=== PATIENT | male | born 1970 | race Caucasian/White ===

== ENCOUNTER 2017-12-24 05:16 | Day surgery (SDC) | payer OTHER ==
[2017-12-22 11:46] VITALS: BMI 27.8
--- NOTE | 2017-12-24 12:23 | HP ---
History & Physical Update - History History: No Change - Physical Physical: No Change - Assessment Assessment: No Change - Plan Plan: No Change
--- NOTE | 2017-12-24 12:24 | OP ---
Operative Note - Note: Operative Date: 12/24/17 Pre-Operative Diagnosis: BPH w LUTs Operation: urolift x 4 Findings: BPH Post-Operative Diagnosis: Same as Pre-op Surgeon: Kel Naqvi Anesthesiologist/CRIME INVESTIGATOR SPECIAL AGENT: Allyson Dewitt Anesthesia: General Estimated Blood Loss (mls): 0 Drains & Tubes with Location: 18 fr [address]opez Operative Report Dictated: Yes
[2017-12-24] MEDS ORDERED: MIDAZOLAM HCL 2 MG/2 ML SINGLE DOSE VIAL ONE (12:33)
[2017-12-24] MEDS ORDERED: PROPOFOL 20 ML ONE ×2 (12:33)
[2017-12-24] MEDS ORDERED: ONDANSETRON 4 MG/2 ML VIAL IVPUSH PRN (12:42)
[2017-12-24] MEDS ORDERED: oxyCODONE HCL 5 MG TABLET PO PRN (12:42)
[2017-12-24] MEDS ORDERED: ceFAZolin SODIUM 1 GM VIAL IVPB ONE (13:03)
[2017-12-24] MEDS ORDERED: DEXAMETHASONE SOD PHOSPHATE 4 MG/1 ML VIAL ONE (13:06)
[2017-12-24] MEDS ORDERED: ceFAZolin SODIUM 1 GM VIAL ONE (13:06)
[2017-12-24] MEDS ORDERED: IBUPROFEN 800 MG/8 ML IJ IVPB ONE (13:45)
[2017-12-24] MEDS: IBUPROFEN 800 MG/8 ML IJ IVPB PRN ×2 (13:45→13:55)
[2017-12-24] MEDS ORDERED: oxyCODONE HCL 5 MG TABLET PO ONE (15:15)
[2017-12-24] MEDS ORDERED: ACETAMINOPHEN 325 MG TABLET (FP) PO ONE (15:15)
[2017-12-24] MEDS: LACTATED RINGERS SOLUTION 1,000 ML IV SCH ×2 (16:00→18:00)
[2017-12-24] MEDS ORDERED: ACETAMINOPHEN 325 MG TABLET (FP) PO PRN (16:29)
[2017-12-24] MEDS: oxyCODONE HCL 5 MG TABLET PO PRN (17:50)
[2017-12-24] MEDS: ACETAMINOPHEN 325 MG TABLET (FP) PO PRN (17:51)
[2017-12-24] MEDS ORDERED: morphine SULFATE 4 MG/ML VIAL ONE (18:51)
[2017-12-24] MEDS ORDERED: morphine SULFATE 4 MG/ML VIAL IVPUSH ONE (19:00)
[2017-12-24] MEDS ORDERED: morphine SULFATE 4 MG/ML VIAL IVPUSH PRN (19:34)
[2017-12-24] MEDS ORDERED: LORazepam 1 MG TABLET PO ONE (19:45)
[2017-12-25] MEDS: LACTATED RINGERS SOLUTION 1,000 ML IV SCH (01:48)
[2017-12-25] MEDS: oxyCODONE HCL 5 MG TABLET PO PRN ×2 (07:13→13:09)
[2017-12-25] MEDS: ACETAMINOPHEN 325 MG TABLET (FP) PO PRN ×2 (07:14→13:10)
--- NOTE | 2017-12-25 09:46 | PN ---
Progress Note (short form) - Note Progress Note: POD #1 - s/p cysto/urolift under GA. VSS. Pt. doing well, resting comfortably in bed. No complaints. No apparent anesthetic complications noted. Continue current care.
[2017-12-25 10:05] VITALS: BP 97/58; PULSE 65; TEMP 97.6
--- NOTE | 2018-01-25 09:06 | OP ---
DATE OF OPERATION: 12/24/2017 PREOPERATIVE DIAGNOSIS: Benign prostatic hypertrophy with lower urinary tract symptoms. POSTOPERATIVE DIAGNOSIS: Benign prostatic hypertrophy with lower urinary tract symptoms. PROCEDURE: UroLift. SURGEON: Kel Rodgers MD SUPERVISOR FILTER ASSEMBLY: None. ANESTHESIA: General. ANESTHESIOLOGIST: Allyson Dewitt MD SPECIMENS: None. CULTURES: None. DRAINS: An 18-Swazi Sarmiento catheter. ESTIMATED BLOOD LOSS: Negligible. COMPLICATIONS: None. DESCRIPTION OF PROCEDURE: Patient was brought into the operating room, placed on the operating table in supine position. After the administration of general anesthesia, intravenous antibiotics were administered, and sequential compression devices were placed. The patient was placed in the dorsal lithotomy position. The perineum and genitals were prepped and draped in usual sterile manner. Now, the UroLift cystoscope was inserted into the bladder under direct vision. Anterior urethra was normal. Prostatic urethra measured approximately 4.5 cm in length and demonstrated moderate bilobar occlusion. The bladder was entered and thoroughly inspected. There were no foreign bodies, tumors, stones, or inflammation. Both ureteral orifices were in their usual location with clear efflux bilaterally. The UroLift implant was now inserted, and the first one was placed to the level of the verumontanum on the left side at 2 o'clock position. In similar manner, one was placed on the right side at 10 o'clock position at the level of the verumontanum. Now, two more were placed distal to the bladder neck first on the left side at the 2 o'clock position and now on the right side at the 10 o'clock position. There was excellent opening of the prostatic urethra. Bladder was left full and the instruments removed. An 18-Swazi Sarmiento catheter was placed, placed on gravity drainage. Return blood tinged. He tolerated the procedure well, transferred to the recovery room in stable condition. KEL RODGERS M.D. [id number]
== END 2017-12-25 13:31 | disposition home or self-care (01) ==
LOC: JASU-SURG 05:16 → J5S 16:25 → JASU-SURG 12-25 13:31
PROVIDERS: ATTEND Urology
PROC: 0T7D8DZ Dilation of Urethra with Intraluminal Device, Via Natural or Artificial Opening Endoscopic (ICD-10-PCS; principal; 2017-12-24 12:00)
DX: N40.1 Benign prostatic hyperplasia with lower urinary tract symptoms (principal); R35.0 Frequency of micturition; R39.12 Poor urinary stream; R35.1 Nocturia
CPT/HCPCS: C9739; L8699; 94760